=== PATIENT | female | born 1945 | race Caucasian/White ===

== ENCOUNTER 2018-08-01 13:23 | Observation (INO) ==
--- NOTE | 2018-08-01 14:47 | Emergency Department Note ---
Disposition Clinical Impression: Delirium due to general medical condition, Hypokalemia Disposition: Admitted As Inpatient Condition: Undetermined Time of Disposition: 17:00 General Adult HPI - General Chief complaint: ED Altered Mental Status Stated complaint: AMS Time Seen by Provider: 08/01/18 13:39 Source: EMS Limitations: no limitations - History of Present Illness Pain Scale: 5 - Related Data Home Medications Medication Instructions Recorded Confirmed Aspirin [Lo-Dose Aspirin EC] 81 mg PO DAILY 11/03/16 08/01/18 Citalopram [CeleXA] 20 mg PO DAILY 11/03/16 08/01/18 Acetaminophen [Pain Reliever] 500 mg PO Q4H 08/01/18 08/01/18 Atorvastatin Calcium [Lipitor] 20 mg PO HS 08/01/18 08/01/18 Buspirone HCl [Buspar] 7.5 mg PO BID 08/01/18 08/01/18 Ergocalciferol (VITAMIN D2) 50,000 unit PO TOVAR 08/01/18 08/01/18 [Vitamin D2] Ferrous Sulfate [Iron] 325 mg PO TID 08/01/18 08/01/18 Ipratropium/Albuterol Neb [Duoneb] 3 ml IH Q4HR PRN 08/01/18 08/01/18 Lisinopril 2.5 mg PO DAILY 08/01/18 08/01/18 Melatonin 3 mg PO HS 08/01/18 08/01/18 Ondansetron HCl [Zofran] 4 mg PO Q6H PRN 08/01/18 08/01/18 OxyCODONE Immed Rel [Roxicodone 10 10 mg PO Q4H 08/01/18 08/01/18 MG] Pantoprazole Sodium [Protonix] 40 mg PO DAILY 08/01/18 08/01/18 Pregabalin [Lyrica] 100 mg PO BIDWM 08/01/18 08/01/18 Pregabalin [Lyrica] 200 mg PO HS 08/01/18 08/01/18 Sennosides [Senna] 8.6 mg PO DAILY PRN 08/01/18 08/01/18 Sertraline [Zoloft] 25 mg PO DAILY 08/01/18 08/01/18 amLODIPine [Norvasc] 5 mg PO DAILY 08/01/18 08/01/18 hydrOXYzine pamoate [HydrOXYzine 25 mg PO Q8H PRN 08/01/18 08/01/18 Pamoate] Allergies Allergy/AdvReac Type Severity Reaction Status Date / Time ibuprofen [From Motrin] Allergy Hives Verified 10/30/16 16:04 naproxen [From Naprosyn] Allergy Hives Verified 10/30/16 16:04 Amoxicillin AdvReac Vomiting Verified 10/30/16 16:04 Past Medical History - Past Medical History Medical history: Reports: COPD, CVA, hyperlipidemia, hypertension Surgical history: Reports: appendectomy, cancer surgery, carotid endarterectomy, colectomy, hysterectomy, other Psychiatric history: Reports: no psych history VISION CARE ASSOCIATE history: Reports: no VISION CARE ASSOCIATE history - Social History Smoking Status: Current every day smoker Smokeless Tobacco Status: No Alcohol use: Reports: none Drug use: Reports: none Physical Exam - General Limitations: no limitations General appearance: anxious, in distress Course Vital Signs Temperature 98.3 F 08/01/18 13:28 Pulse Rate 78 08/01/18 13:28 Respiratory Rate 20 08/01/18 13:28 Blood Pressure 149/112 08/01/18 13:28 O2 Sat by Pulse Oximetry 100 08/01/18 13:28 Temperature 97.6 F 08/03/18 06:39 Pulse Rate 69 08/03/18 06:39 Respiratory Rate 17 08/03/18 06:39 Blood Pressure 174/93 08/03/18 06:39 O2 Sat by Pulse Oximetry 97 08/03/18 06:39 Oxygen Delivery Oxygen Delivery Room Air Medical Decision Making - Lab Data Result diagrams: 08/01/18 17:42 08/02/18 05:30 Lab Results 08/01/18 08/01/18 08/01/18 Range/Units 17:42 17:42 19:31 WBC 5.7 (4.3-11.1) K/mcL RBC 3.29 L (3.82-4.97) M/mcL Hgb 10.1 L (11.5-15.4) g/dL Hct 32.8 L (35.3-44.9) % MCV 99.7 (83.0-100.0) fL MCH 30.7 (28.0-33.3) pg MCHC 30.8 L (31.6-35.5) g/dL RDW 21.2 H (11.5-14.5) % Plt Count 450 H (140-400) K/mcL MPV 9.2 L (9.4-12.4) fL Immature Gran % 0.4 (0-4) % Seg Neutrophils % 65.1 % Lymphocytes % 24.2 % Monocytes % 8.5 % Eosinophils % 0.9 % Basophils % 0.9 % Neutrophils # 3.7 (1.6-8.9) K/mcL Lymphocytes # 1.4 (0.6-4.6) K/mcL Monocytes # 0.5 (0.0-1.3) K/mcL Eosinophils # 0.1 (0.0-0.6) K/mcL Basophils # 0.1 (0.0-0.2) K/mcL Sodium 142 (136-145) mEq/L Potassium 2.8 L (3.5-5.1) mEq/L Chloride 108 H (98-107) mEq/L Carbon Dioxide 18 L (23-29) mEq/L BUN 12 (8-23) mg/dL Creatinine 0.54 L (0.60-1.20) mg/dL Est GFR ( Amer) > 60 (> 60) Est GFR (Non-Af Amer) > 60 (> 60) BUN/Creatinine Ratio 22 (6-26) Glucose 132 H (70-105) mg/dL Calculated Osmolality 296 (280-300) Calcium 9.6 (8.6-10.3) mg/dL Total Bilirubin 0.3 (0.3-1.0) mg/dL Direct Bilirubin 0.1 (0.0-0.2) mg/dL Indirect Bilirubin 0.2 (0.0-1.2) mg/dL AST 27 (13-39) Units/L ALT 26 (7-52) Units/L Alkaline Phosphatase 127 H (34-104) Units/L Creatine Kinase 113 (30-223) Units/L Troponin I < 0.03 (< 0.04) ng/mL Serum Total Protein 7.5 (6.4-8.9) g/dL Albumin 4.2 (3.5-5.7) g/dL Globulin 3.3 (2.4-3.5) g/dL Albumin/Globulin Ratio 1.3 (1.1-2.2) TSH 2.165 (0.340-5.600) mcIU/mL Urine Color Yellow (Yellow) Urine Clarity Clear (Clear) Urine pH 6.0 (5.0-8.0) pH Units Ur Specific [place] 1.023 (1.010-1.025) Urine Protein Trace (Neg-Trace) mg/dL Urine Glucose (UA) Normal (Normal) mg/dL Urine Ketones Negative (Negative) mg/dL Urine Blood Negative (Negative) Urine Nitrite Negative (Negative) Urine Bilirubin Negative (Negative) Urine Urobilinogen 2.0 H (Normal) mg/dL Ur Leukocyte Esterase Negative (Negative) Urine Microscopic WBC 0-3 (0-3) per hpf Ur Squamous Epith Cells Few (None-Few) per lpf Urine Mucus Few (Few) Ur Culture Indicated? NO (NO) Urine Opiates Screen (Ybxsga=394) ng/mL Ur Barbiturates Screen (Ddkjgm=004) ng/mL Ur Phencyclidine Scrn (Cutoff=25) ng/mL Ur Amphetamines Screen (Ubmaho=4845) ng/mL U Benzodiazepines Scrn (Hymupi=380) ng/mL Urine Cocaine Screen (Cutoff= 300) ng/mL U Marijuana (THC) Screen (Cutoff = 50) ng/mL Ur Drug Screen Interp Ethyl Alcohol < 10 (Less than 10) mg/dL 08/01/18 Range/Units 19:31 WBC (4.3-11.1) K/mcL RBC (3.82-4.97) M/mcL Hgb (11.5-15.4) g/dL Hct (35.3-44.9) % MCV (83.0-100.0) fL MCH (28.0-33.3) pg MCHC (31.6-35.5) g/dL RDW (11.5-14.5) % Plt Count (140-400) K/mcL MPV (9.4-12.4) fL Immature Gran % (0-4) % Seg Neutrophils % % Lymphocytes % % Monocytes % % Eosinophils % % Basophils % % Neutrophils # (1.6-8.9) K/mcL Lymphocytes # (0.6-4.6) K/mcL Monocytes # (0.0-1.3) K/mcL Eosinophils # (0.0-0.6) K/mcL Basophils # (0.0-0.2) K/mcL Sodium (136-145) mEq/L Potassium (3.5-5.1) mEq/L Chloride (98-107) mEq/L Carbon Dioxide (23-29) mEq/L BUN (8-23) mg/dL Creatinine (0.60-1.20) mg/dL Est GFR ( Amer) (> 60) Est GFR (Non-Af Amer) (> 60) BUN/Creatinine Ratio (6-26) Glucose (70-105) mg/dL Calculated Osmolality (280-300) Calcium (8.6-10.3) mg/dL Total Bilirubin (0.3-1.0) mg/dL Direct Bilirubin (0.0-0.2) mg/dL Indirect Bilirubin (0.0-1.2) mg/dL AST (13-39) Units/L ALT (7-52) Units/L Alkaline Phosphatase (34-104) Units/L Creatine Kinase (30-223) Units/L Troponin I (< 0.04) ng/mL Serum Total Protein (6.4-8.9) g/dL Albumin (3.5-5.7) g/dL Globulin (2.4-3.5) g/dL Albumin/Globulin Ratio (1.1-2.2) TSH (0.340-5.600) mcIU/mL Urine Color (Yellow) Urine Clarity (Clear) Urine pH (5.0-8.0) pH Units Ur Specific [place] (1.010-1.025) Urine Protein (Neg-Trace) mg/dL Urine Glucose (UA) (Normal) mg/dL Urine Ketones (Negative) mg/dL Urine Blood (Negative) Urine Nitrite (Negative) Urine Bilirubin (Negative) Urine Urobilinogen (Normal) mg/dL Ur Leukocyte Esterase (Negative) Urine Microscopic WBC (0-3) per hpf Ur Squamous Epith Cells (None-Few) per lpf Urine Mucus (Few) Ur Culture Indicated? (NO) Urine Opiates Screen Positive H (Sccfnq=755) ng/mL Ur Barbiturates Screen Negative (Zlvfay=628) ng/mL Ur Phencyclidine Scrn Negative (Cutoff=25) ng/mL Ur Amphetamines Screen Negative (Wydboa=9865) ng/mL U Benzodiazepines Scrn Negative (Prkngy=130) ng/mL Urine Cocaine Screen Negative (Cutoff= 300) ng/mL U Marijuana (THC) Screen Negative (Cutoff = 50) ng/mL Ur Drug Screen Interp See Below Ethyl Alcohol (Less than 10) mg/dL Attestation Statement - Attestation Attestation: I examined this patient and my medical decision-making was reviewed with the Resident Physician. I agree with the documented findings, disposition and treatment plan as described except to the extent set forth below. Patient presents to the ED with altered mental status. Patient was found at the shelter. They state she walks in the door. They do not she got there. Patient was an inpatient there but the family checked her out AMA recently. Patient is mumbling incoherently. She denies pain when asked if she is having any. On examination she does not appear in any distress. Her lungs are clear. Her abdomen soft. She is noted to have a G-tube in place. Plan. Altered mental status workup. Set now present at bedside. The patient lives with her . She apparently has been noncompliant with her home medications for anxiety. She is persistently wanted to have the G-tube removed which is what she is upset about today. She had him take her to the shelter and drop her off. He is requesting us to call [facility] to see if we can send her today to have her G- tube removed. I told him this was not likely to happen. I told him I am concerned for her safety and sending her home. She will be admitted for safety concerns. She will also be getting her altered mental status workup. We will give her some Ativan at this time to try to calm her down to get her blood drawn. Scans reviewed. No result Ativan. No result Haldol. Patient is still ambulatory and trying to leave. We will give her some Versed and Geodon. Signed out to skiver operator pending labs and admission. Chest X-Ray 08/01/18 13:39 IMPRESSION: No acute findings. No change. D/ / 08/01/2018 14:05:56 Abbe Zhao MD / [facility] Interpreting Provider: Abbe Zhao MD Abdomen/Pelvis CT 08/01/18 13:40 IMPRESSION: Study is motion compromised. Dependent opacities at the lung bases demonstrate interval improvement from the comparison likely atelectasis. Pneumonia not excluded. Interval placement of gastrostomy tube in the left lower quadrant. Tube projects in the stomach in expected position. Expected postsurgical changes noted in the abdominal wall. No definite acute abnormality noted. Cholelithiasis suspected. No acute intra-abdominal or intrapelvic abnormality noted. D/ / 08/01/2018 15:12:15 Cole Rodriguez MD / [email or web address] Interpreting Provider: Cole Rodriguez MD Head CT 08/01/18 13:40 IMPRESSION: No acute intracranial abnormality. D/ / Paolo Sommers MD / Paolo Sommers MD Interpreting Provider: Paolo Sommers MD
[2018-08-01] MEDS ORDERED: *HR* LORazepam 2 MG/ML VIAL IM ONE (15:24)
[2018-08-01] MEDS ORDERED: Haloperidol Lactate 5 MG/ML VIAL IM ONE ×2 (16:10→16:33)
[2018-08-01] MEDS ORDERED: Ziprasidone injection 20 MG/ML VIAL IM ONE (17:01)
[2018-08-01] MEDS ORDERED: *HR* Water for inj. (sterile) Vial IM ONE (17:01)
--- NOTE | 2018-08-01 17:15 | Emergency Department Note ---
Disposition Clinical Impression: Delirium due to general medical condition Disposition: Admitted As Inpatient Referrals: NONE,PCP [Primary Care Provider] - Forms: ED Satisfaction Letter Time of Disposition: 17:14 General Adult HPI - General Chief complaint: ED Altered Mental Status Stated complaint: AMS Time Seen by Provider: 08/01/18 13:39 Source: EMS Mode of arrival: EMS Limitations: altered mental status Nursing Notes Reviewed: Yes Vital Signs Reviewed: Yes - History of Present Illness HPI Narrative: Patient signed out by the departing ED attending and resident team of Dr. rivera and Dr. Morris. Please see copy of their notes for details of the history and physical examination evaluation management to the point of sign out at 1700. Patient who has altered mental status is a face was signed out AGAINST MEDICAL ADVICE from her [facility] in the recent past was at home not doing well family just dropped her off at the [facility] which they called 911 and she is here she is unable to make her own decisions family wants her placed she will require reevaluation here and admission for placement back in the senior care facility. Patient is little agitated currently getting medication she will then get an IV blood work and urinalysis. Patient had an abdominal pelvic CT chest x-ray and head CT otherwise were read as negative. Disposition pending. Pain Scale: 5 - Related Data Home Medications Medication Instructions Recorded Confirmed Aspirin [Lo-Dose Aspirin EC] 81 mg PO DAILY 11/03/16 11/03/16 Buspirone HCl [Buspar] 10 mg PO BID PRN 11/03/16 11/03/16 Citalopram [CeleXA] 20 mg PO DAILY 11/03/16 11/03/16 Allergies Allergy/AdvReac Type Severity Reaction Status Date / Time ibuprofen [From Motrin] Allergy Hives Verified 10/30/16 16:04 naproxen [From Naprosyn] Allergy Hives Verified 10/30/16 16:04 Amoxicillin AdvReac Vomiting Verified 10/30/16 16:04 Past Medical History - Past Medical History Medical history: Reports: COPD, CVA, hyperlipidemia, hypertension Surgical history: Reports: appendectomy, cancer surgery, carotid endarterectomy, colectomy, hysterectomy, other Psychiatric history: Reports: no psych history SHINGLER history: Reports: no SHINGLER history - Social History Smoking Status: Current every day smoker Smokeless Tobacco Status: No Alcohol use: Reports: none Drug use: Reports: none Physical Exam - General Limitations: no limitations General appearance: anxious, in distress Course Vital Signs Temperature 98.3 F 08/01/18 13:28 Pulse Rate 78 08/01/18 13:28 Respiratory Rate 20 08/01/18 13:28 Blood Pressure 149/112 08/01/18 13:28 O2 Sat by Pulse Oximetry 100 08/01/18 13:28 Temperature 98.3 F 08/01/18 13:28 Pulse Rate 78 08/01/18 13:28 Respiratory Rate 24 08/01/18 15:37 Blood Pressure 166/87 08/01/18 15:37 O2 Sat by Pulse Oximetry 95 08/01/18 15:37 Oxygen Delivery Oxygen Delivery Room Air
--- NOTE | 2018-08-01 17:39 | Emergency Department Note ---
Disposition Clinical Impression: Delirium due to general medical condition Disposition: Admitted As Inpatient Referrals: NONE,PCP [Primary Care Provider] - Forms: ED Satisfaction Letter Time of Disposition: 17:42 General Adult HPI - General Chief complaint: ED Altered Mental Status Stated complaint: AMS Time Seen by Provider: 08/01/18 13:39 Source: EMS Mode of arrival: EMS Limitations: altered mental status Nursing Notes Reviewed: Yes Vital Signs Reviewed: Yes - History of Present Illness HPI Narrative: Patient is a 72-year-old female with past medical history of CVA leaving her with chronic aphasia, dementia, as well as G-tube presents to the emergency department brought to the emergency department for admission to a snf. Patient family states that she was signed out AGAINST MEDICAL ADVICE by her and which eventually her brought her back to the snf and they are unable to accept her without her coming to the hospital first. Patient herself cannot answer any of my questions repetitively says the same ordered which I cannot understand. Family is at bedside and they state that this is her baseline. Pain Scale: 5 - Related Data Home Medications Medication Instructions Recorded Confirmed Aspirin [Lo-Dose Aspirin EC] 81 mg PO DAILY 11/03/16 11/03/16 Buspirone HCl [Buspar] 10 mg PO BID PRN 11/03/16 11/03/16 Citalopram [CeleXA] 20 mg PO DAILY 11/03/16 11/03/16 Allergies Allergy/AdvReac Type Severity Reaction Status Date / Time ibuprofen [From Motrin] Allergy Hives Verified 10/30/16 16:04 naproxen [From Naprosyn] Allergy Hives Verified 10/30/16 16:04 Amoxicillin AdvReac Vomiting Verified 10/30/16 16:04 Limitations: ROS unobtainable due to patients medical condition Past Medical History - Past Medical History Medical history: Reports: COPD, CVA, hyperlipidemia, hypertension Surgical history: Reports: appendectomy, cancer surgery, carotid endarterectomy, colectomy, hysterectomy, other Psychiatric history: Reports: no psych history LICENSED WEIGHER history: Reports: no LICENSED WEIGHER history - Social History Smoking Status: Current every day smoker Smokeless Tobacco Status: No Alcohol use: Reports: none Drug use: Reports: none Physical Exam - General Limitations: altered mental status General appearance: alert, anxious, in distress - Head Head exam: atraumatic, normocephalic, normal inspection - Eye Eye exam: Present: normal appearance, PERRL, EOMI - ENT ENT exam: normal exam, normal oropharynx, mucous membranes moist - Neck Neck exam: Present: normal inspection, full ROM, trachea midline - Chest Chest inspection: Present: normal inspection, symmetric chest wall rise - Respiratory Respiratory exam: Present: normal lung sounds bilaterally. Absent: respiratory distress - Cardiovascular Cardiovascular exam: Present: regular rate, normal rhythm, normal heart sounds, +S1, +S2 - Abdominal Exam Abdominal exam: Present: soft, Non-Tender, normal bowel sounds. Absent: tenderness, distention, guarding, rebound, rigidity - Extremities Exam Extremities exam: Present: normal inspection, full ROM. Absent: tenderness, pedal edema - Back Exam Back exam: Present: normal inspection, full ROM. Absent: tenderness - Neurological Exam Neurological exam: Present: alert - Psychiatric Psychiatric exam: Present: agitated - Skin Skin exam: Present: warm, dry, intact, normal color Course Course Narrative: Patient presents for evaluation for snf placement with no new complaints from her baseline. We attempted to have her undergo a altered mental status workup of the patient has been noncooperative secondary to her dementia. She will be signed out to the night team. We trialed Ativan as well as a dose of Haldol for agitation she continues to be agitated. She will receive a dose of Geodon IM and then reassessed for IV and labs. She was signed out to the night team, Dr. Smalls and Dr. Jalloh with blood work and urine pending. Vital Signs Temperature 98.3 F 08/01/18 13:28 Pulse Rate 78 08/01/18 13:28 Respiratory Rate 20 08/01/18 13:28 Blood Pressure 149/112 08/01/18 13:28 O2 Sat by Pulse Oximetry 100 08/01/18 13:28 Temperature 98.3 F 08/01/18 13:28 Pulse Rate 78 08/01/18 13:28 Respiratory Rate 24 08/01/18 15:37 Blood Pressure 166/87 08/01/18 15:37 O2 Sat by Pulse Oximetry 95 08/01/18 15:37 Oxygen Delivery Oxygen Delivery Room Air Medical Decision Making - Medical Records Medical records reviewed: Yes I reviewed the patient's medical records. - Lab Data Lab results reviewed: Yes I reviewed the patient's lab results. - Radiology Data Radiology results reviewed: Yes I reviewed the patient's radiology results. Chest X-Ray 08/01/18 13:39 IMPRESSION: No acute findings. No change. D/ / 08/01/2018 14:05:56 Abbe Zhao MD / [facility] Interpreting Provider: Abbe Zhao MD Abdomen/Pelvis CT 08/01/18 13:40 IMPRESSION: Study is motion compromised. Dependent opacities at the lung bases demonstrate interval improvement from the comparison likely atelectasis. Pneumonia not excluded. Interval placement of gastrostomy tube in the left lower quadrant. Tube projects in the stomach in expected position. Expected postsurgical changes noted in the abdominal wall. No definite acute abnormality noted. Cholelithiasis suspected. No acute intra-abdominal or intrapelvic abnormality noted. D/ / 08/01/2018 15:12:15 Cole Rodriguez MD / [facility] Interpreting Provider: Cole Rodriguez MD Head CT 08/01/18 13:40 IMPRESSION: No acute intracranial abnormality. D/ / Paolo Sommers MD / Paolo Sommers MD Interpreting Provider: Paolo Sommers MD
--- NOTE | 2018-08-01 17:39 | Emergency Department Note ---
Disposition Clinical Impression: Delirium due to general medical condition, Hypokalemia Disposition: Admitted As Inpatient Condition: Undetermined Referrals: NONE,PCP [Primary Care Provider] - Forms: ED Satisfaction Letter Time of Disposition: 20:15 General Adult HPI - General Chief complaint: ED Altered Mental Status Stated complaint: AMS Time Seen by Provider: 08/01/18 13:39 Source: EMS Mode of arrival: EMS Limitations: altered mental status Nursing Notes Reviewed: Yes Vital Signs Reviewed: Yes - History of Present Illness HPI Narrative: Patient care signed out by the day team, Dr. Zamarripa in Dr. Chacon. Briefly this is a 72-year-old female with history of chronic achalasia was apparently signed out AGAINST MEDICAL ADVICE from nursing facility who apparently is currently living at home at this time and they are unable to care for. Apparently they attempted to drop the patient back off at the nursing facility was unable to do so. EMS was called upon arrival to the custodial and brought the patient in for evaluation. Pain Scale: 5 - Related Data Home Medications Medication Instructions Recorded Confirmed Aspirin [Lo-Dose Aspirin EC] 81 mg PO DAILY 11/03/16 11/03/16 Buspirone HCl [Buspar] 10 mg PO BID PRN 11/03/16 11/03/16 Citalopram [CeleXA] 20 mg PO DAILY 11/03/16 11/03/16 Allergies Allergy/AdvReac Type Severity Reaction Status Date / Time ibuprofen [From Motrin] Allergy Hives Verified 10/30/16 16:04 naproxen [From Naprosyn] Allergy Hives Verified 10/30/16 16:04 Amoxicillin AdvReac Vomiting Verified 10/30/16 16:04 Limitations: ROS unobtainable due to patients medical condition Past Medical History - Past Medical History Source: old records reviewed, obtained from family Medical history: Reports: COPD, CVA, hyperlipidemia, hypertension Surgical history: Reports: appendectomy, cancer surgery, carotid endarterectomy, colectomy, hysterectomy, other Psychiatric history: Reports: no psych history ENGINE INSPECTOR history: Reports: no ENGINE INSPECTOR history - Social History Smoking Status: Current every day smoker Smokeless Tobacco Status: No Alcohol use: Reports: none Drug use: Reports: none Physical Exam - General Limitations: altered mental status General appearance: anxious, in distress - Head Head exam: atraumatic, normocephalic, normal inspection - Eye Eye exam: Present: normal appearance, PERRL, EOMI - ENT ENT exam: normal exam, normal oropharynx, mucous membranes moist - Neck Neck exam: Present: normal inspection, full ROM, trachea midline - Chest Chest inspection: Present: normal inspection, symmetric chest wall rise - Respiratory Respiratory exam: Present: normal lung sounds bilaterally - Cardiovascular Cardiovascular exam: Present: regular rate, normal rhythm, normal heart sounds - Abdominal Exam Abdominal exam: Present: soft, Non-Tender. Absent: tenderness, distention, guarding, rebound, rigidity - Extremities Exam Extremities exam: Present: normal inspection, full ROM, normal capillary refill. Absent: tenderness, pedal edema - Neurological Exam Neurological exam: Present: alert - Expanded Neurological Exam Speech: Present: expressive aphasia Cranial nerves: EOM function (II, III, IV, ): Normal, facial palsy (VII): Normal Motor strength - LUE: 4/5 Motor strength - RUE: 4/5 Motor strength - LLE: 4/5 Motor strength - RLE: 4/5 Coma Scale Eye Opening: Spontaneous Coma Scale Motor Response: Obeys Commands Coma Scale Verbal Response: Incomprehensible Coma Scale Total: 12 - Skin Skin exam: Present: warm, dry, intact, normal color Course Vital Signs Temperature 98.3 F 08/01/18 13:28 Pulse Rate 78 08/01/18 13:28 Respiratory Rate 20 08/01/18 13:28 Blood Pressure 149/112 08/01/18 13:28 O2 Sat by Pulse Oximetry 100 08/01/18 13:28 Temperature 98.3 F 08/01/18 13:28 Pulse Rate 61 08/01/18 19:36 Respiratory Rate 18 08/01/18 19:36 Blood Pressure 118/55 08/01/18 19:36 O2 Sat by Pulse Oximetry 98 08/01/18 19:36 Oxygen Delivery Oxygen Delivery Room Air Medical Decision Making - MDM Narrative Medical decision making narrative: Patient's workup reveals hypokalemia. No other acute abnormality noted. Patient has baseline anemia. Given the patient's inability to care for herself at home combined with alteration in mentation from baseline according to family and hypokalemia, we will admit the patient to hospital this time for further workup and care. No further questions or concerns noted. - Lab Data Lab results reviewed: Yes I reviewed the patient's lab results. Result diagrams: 08/01/18 17:42 08/01/18 17:42 Lab Results 08/01/18 08/01/18 08/01/18 Range/Units 17:42 17:42 19:31 WBC 5.7 (4.3-11.1) K/mcL RBC 3.29 L (3.82-4.97) M/mcL Hgb 10.1 L (11.5-15.4) g/dL Hct 32.8 L (35.3-44.9) % MCV 99.7 (83.0-100.0) fL MCH 30.7 (28.0-33.3) pg MCHC 30.8 L (31.6-35.5) g/dL RDW 21.2 H (11.5-14.5) % Plt Count 450 H (140-400) K/mcL MPV 9.2 L (9.4-12.4) fL Immature Gran % 0.4 (0-4) % Seg Neutrophils % 65.1 % Lymphocytes % 24.2 % Monocytes % 8.5 % Eosinophils % 0.9 % Basophils % 0.9 % Neutrophils # 3.7 (1.6-8.9) K/mcL Lymphocytes # 1.4 (0.6-4.6) K/mcL Monocytes # 0.5 (0.0-1.3) K/mcL Eosinophils # 0.1 (0.0-0.6) K/mcL Basophils # 0.1 (0.0-0.2) K/mcL Sodium 142 (136-145) mEq/L Potassium 2.8 L (3.5-5.1) mEq/L Chloride 108 H (98-107) mEq/L Carbon Dioxide 18 L (23-29) mEq/L BUN 12 (8-23) mg/dL Creatinine 0.54 L (0.60-1.20) mg/dL Est GFR ( Amer) > 60 (> 60) Est GFR (Non-Af Amer) > 60 (> 60) BUN/Creatinine Ratio 22 (6-26) Glucose 132 H (70-105) mg/dL Calculated Osmolality 296 (280-300) Calcium 9.6 (8.6-10.3) mg/dL Total Bilirubin 0.3 (0.3-1.0) mg/dL Direct Bilirubin 0.1 (0.0-0.2) mg/dL Indirect Bilirubin 0.2 (0.0-1.2) mg/dL AST 27 (13-39) Units/L ALT 26 (7-52) Units/L Alkaline Phosphatase 127 H (34-104) Units/L Creatine Kinase 113 (30-223) Units/L Troponin I < 0.03 (< 0.04) ng/mL Serum Total Protein 7.5 (6.4-8.9) g/dL Albumin 4.2 (3.5-5.7) g/dL Globulin 3.3 (2.4-3.5) g/dL Albumin/Globulin Ratio 1.3 (1.1-2.2) TSH 2.165 (0.340-5.600) mcIU/mL Urine Color Yellow (Yellow) Urine Clarity Clear (Clear) Urine pH 6.0 (5.0-8.0) pH Units Ur Specific [place] 1.023 (1.010-1.025) Urine Protein Trace (Neg-Trace) mg/dL Urine Glucose (UA) Normal (Normal) mg/dL Urine Ketones Negative (Negative) mg/dL Urine Blood Negative (Negative) Urine Nitrite Negative (Negative) Urine Bilirubin Negative (Negative) Urine Urobilinogen 2.0 H (Normal) mg/dL Ur Leukocyte Esterase Negative (Negative) Urine Opiates Screen (Rckddj=936) ng/mL Ur Barbiturates Screen (Xliuzp=805) ng/mL Ur Phencyclidine Scrn (Cutoff=25) ng/mL Ur Amphetamines Screen (Uvsbyg=6798) ng/mL U Benzodiazepines Scrn (Anscmw=513) ng/mL Urine Cocaine Screen (Cutoff= 300) ng/mL U Marijuana (THC) Screen (Cutoff = 50) ng/mL Ur Drug Screen Interp Ethyl Alcohol < 10 (Less than 10) mg/dL 08/01/18 Range/Units 19:31 WBC (4.3-11.1) K/mcL RBC (3.82-4.97) M/mcL Hgb (11.5-15.4) g/dL Hct (35.3-44.9) % MCV (83.0-100.0) fL MCH (28.0-33.3) pg MCHC (31.6-35.5) g/dL RDW (11.5-14.5) % Plt Count (140-400) K/mcL MPV (9.4-12.4) fL Immature Gran % (0-4) % Seg Neutrophils % % Lymphocytes % % Monocytes % % Eosinophils % % Basophils % % Neutrophils # (1.6-8.9) K/mcL Lymphocytes # (0.6-4.6) K/mcL Monocytes # (0.0-1.3) K/mcL Eosinophils # (0.0-0.6) K/mcL Basophils # (0.0-0.2) K/mcL Sodium (136-145) mEq/L Potassium (3.5-5.1) mEq/L Chloride (98-107) mEq/L Carbon Dioxide (23-29) mEq/L BUN (8-23) mg/dL Creatinine (0.60-1.20) mg/dL Est GFR ( Amer) (> 60) Est GFR (Non-Af Amer) (> 60) BUN/Creatinine Ratio (6-26) Glucose (70-105) mg/dL Calculated Osmolality (280-300) Calcium (8.6-10.3) mg/dL Total Bilirubin (0.3-1.0) mg/dL Direct Bilirubin (0.0-0.2) mg/dL Indirect Bilirubin (0.0-1.2) mg/dL AST (13-39) Units/L ALT (7-52) Units/L Alkaline Phosphatase (34-104) Units/L Creatine Kinase (30-223) Units/L Troponin I (< 0.04) ng/mL Serum Total Protein (6.4-8.9) g/dL Albumin (3.5-5.7) g/dL Globulin (2.4-3.5) g/dL Albumin/Globulin Ratio (1.1-2.2) TSH (0.340-5.600) mcIU/mL Urine Color (Yellow) Urine Clarity (Clear) Urine pH (5.0-8.0) pH Units Ur Specific [place] (1.010-1.025) Urine Protein (Neg-Trace) mg/dL Urine Glucose (UA) (Normal) mg/dL Urine Ketones (Negative) mg/dL Urine Blood (Negative) Urine Nitrite (Negative) Urine Bilirubin (Negative) Urine Urobilinogen (Normal) mg/dL Ur Leukocyte Esterase (Negative) Urine Opiates Screen Positive H (Vidvfe=246) ng/mL Ur Barbiturates Screen Negative (Hhfwby=450) ng/mL Ur Phencyclidine Scrn Negative (Cutoff=25) ng/mL Ur Amphetamines Screen Negative (Ywpjmb=1902) ng/mL U Benzodiazepines Scrn Negative (Qotyht=203) ng/mL Urine Cocaine Screen Negative (Cutoff= 300) ng/mL U Marijuana (THC) Screen Negative (Cutoff = 50) ng/mL Ur Drug Screen Interp See Below Ethyl Alcohol (Less than 10) mg/dL - Radiology Data Radiology results reviewed: Yes I reviewed the patient's radiology results. Chest X-Ray 08/01/18 13:39 IMPRESSION: No acute findings. No change. D/ / 08/01/2018 14:05:56 Abbe Zhao MD / [facility] Interpreting Provider: Abbe Zhao MD Abdomen/Pelvis CT 08/01/18 13:40 IMPRESSION: Study is motion compromised. Dependent opacities at the lung bases demonstrate interval improvement from the comparison likely atelectasis. Pneumonia not excluded. Interval placement of gastrostomy tube in the left lower quadrant. Tube projects in the stomach in expected position. Expected postsurgical changes noted in the abdominal wall. No definite acute abnormality noted. Cholelithiasis suspected. No acute intra-abdominal or intrapelvic abnormality noted. D/ / 08/01/2018 15:12:15 Cole Rodriguez MD / [facility] Interpreting Provider: Cole Rodriguez MD Head CT 08/01/18 13:40 IMPRESSION: No acute intracranial abnormality. D/ / Paolo Sommers MD / Paolo Sommers MD Interpreting Provider: Paolo Sommers MD - EKG Data EKG #1 EKG attestation: Yes I reviewed and interpreted this EKG. EKG results narrative: Heart rate 80 beats for minute. Normal sinus rhythm. No ST elevation or ST depression noted. Large amount of artifact so difficult to completely assess.
[2018-08-01 18:00] LABS: Basophils # 0.1 K/mcL (0.0-0.2); Basophils % 0.9 %; Eosinophils # 0.1 K/mcL (0.0-0.6); Eosinophils % 0.9 %; Hematocrit 32.8 % (35.3-44.9); Hemoglobin 10.1 g/dL (11.5-15.4); Immature Granulocytes % 0.4 % (0-4); Lymphocytes # 1.4 K/mcL (0.6-4.6); Lymphocytes % 24.2 %; Mean Corpuscular HGB Conc 30.8 g/dL (31.6-35.5); Mean Corpuscular Hemoglobin 30.7 pg (28.0-33.3); Mean Corpuscular Volume 99.7 fL (83.0-100.0); Mean Platelet Volume 9.2 fL (9.4-12.4); Monocytes # 0.5 K/mcL (0.0-1.3); Monocytes % 8.5 %; Neutrophils # 3.7 K/mcL (1.6-8.9); Platelet Count 450 K/mcL (140-400); Red Blood Count 3.29 M/mcL (3.82-4.97); Red Cell Distribution Width 21.2 % (11.5-14.5); Segmented Neutrophils % 65.1 %
[2018-08-01 18:47] LABS: Alanine Aminotransferase 26 Units/L (7-52); Albumin 4.2 g/dL (3.5-5.7); Albumin/Globulin Ratio 1.3 (1.1-2.2); Alkaline Phosphatase 127 Units/L (34-104); Aspartate Amino Transferase 27 Units/L (13-39); BUN/Creatinine Ratio 22 (6-26); Bilirubin,Direct 0.1 mg/dL (0.0-0.2); Bilirubin,Indirect 0.2 mg/dL (0.0-1.2); Bilirubin,Total 0.3 mg/dL (0.3-1.0); Blood Urea Nitrogen 12 mg/dL (8-23); Calcium 9.6 mg/dL (8.6-10.3); Carbon Dioxide 18 mEq/L (23-29); Chloride 108 mEq/L (98-107); Creatine Kinase 113 Units/L (30-223); Globulin 3.3 g/dL (2.4-3.5); Glucose 132 mg/dL (70-105); Osmolality,Calculated 296 (280-300); Potassium 2.8 mEq/L (3.5-5.1); Sodium 142 mEq/L (136-145); Thyroid Stimulating Hormone 2.165 mcIU/mL (0.340-5.600); Total Protein 7.5 g/dL (6.4-8.9); Troponin I < 0.03 ng/mL (< 0.04); eGFR For Non-African Americans > 60 (> 60)
[2018-08-01] MEDS ORDERED: Potassium Chloride Elixir 20 MEQ/15 ML UDC PO ONE (19:05)
[2018-08-01 19:22] LABS: Ethanol < 10 mg/dL (Less than 10)
[2018-08-01 19:49] LABS: Bilirubin,Urine Negative (Negative); Blood,Urine Negative (Negative); Clarity,Urine Clear (Clear); Color,Urine Yellow (Yellow); Glucose,Urine (UA) Normal (Normal); Ketones,Urine Negative (Negative); Leukocyte Esterase,Urine Negative (Negative); Nitrite,Urine Negative (Negative); Protein,Urine Trace mg/dL (Neg-Trace); Specific Gravity,Urine 1.023 (1.010-1.025)
[2018-08-01 20:00] LABS: Amphetamine Screen,Urine Negative ng/mL (Cutoff=1000); Barbiturate Screen,Urine Negative ng/mL (Cutoff=200); Benzodiazepines Screen,Urine Negative ng/mL (Cutoff=200); Cannabinoid Screen,Urine Negative ng/mL (Cutoff = 50); Cocaine Screen,Urine Negative ng/mL (Cutoff= 300); Opiate Screen,Urine Positive ng/mL (Cutoff=300); Phencyclidine Screen,Urine Negative ng/mL (Cutoff=25)
[2018-08-01 20:15] LABS: Mucus,Urine Few (Few); Squamous Epithelial Cell,Urine Few per lpf (None-Few); WBC,Urine 0-3 per hpf (0-3)
[2018-08-01] MEDS ORDERED: Naloxone 0.4 MG/ML INJ IVP PRN (20:52)
--- NOTE | 2018-08-01 21:46 | Internal Med History&Physical ---
<Farheen Smalls E - Last Filed: 08/01/18 21:38> Date of Encounter: 08/01/18 Time of Encounter: 09:00 Internal Medicine - H&P: HPI Chief complaint: Altered mental status Admitted From: Home Plans for Post Hospital Care: Transfer Residential Facility History of present illness: Ms. 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 until July 27. It is reported that earlier today was at social work in the ER received a call from [facility] the patient showed up in the parking lot the squad was called. Her had signed her out AMA on July 27 due to insurance not paying for staining. It was reported that she has not been compliant with her home medications for anxiety over the last 5 days after leaving [facility]. Patient was agitated in the ED and is assumed to have altered mental status although the family has differing reports on whether this is altered mental status or the patient's normal. Patient was tried on Ativan, Haldol with no results. Patient was trying to leave the ED and was very agitated. She was given Geodon. Patient's labs show baseline anemia improved since last admission, potassium level 2.8. Toxicology screen showed positive for opiates. All other labs unremarkable Chest x-ray showed no acute findings CT abdomen and pelvis showed: Dependent opacities at the lung bases demonstrate interval improvement from the comparison likely atelectasis. Interval placement of gastrostomy tube in the left lower quadrant, tip projects in the stomach in expected position, expected postsurgical changes noted in the abdominal wall, no definite acute and normality noted. Cholelithiasis is suspected, no acute intra-abdominal or intrapelvic abnormality noted. CT head/brain without contrast showed no acute intracranial abnormality Past Med Surg Social Fam HX - Past Medical History Medical history: COPD, CVA, hyperlipidemia, hypertension Additional medical history: TIA, neck injury, Anxiety, Anemia, Peptic Ulcer, Left index finger digit ovulsion, carotid stenosis. bilateral weakness and memory loss due to CVA Psychiatric history: no psych history - Past Surgical History Surgical History: appendectomy, cancer surgery, carotid endarterectomy, colectomy, hysterectomy, other Additional surgical history: back surgery. Cervical cancer-lymph nodes removed. Left foot surgery. neck surgery. PEG tube - Social History Smoking Status: Current every day smoker Smokeless Tobacco Status: No Alcohol use: none Drug use: none Internal Medicine - H&P: Meds Aspirin [Lo-Dose Aspirin EC] 81 mg PO DAILY 11/03/16 [History] Citalopram [CeleXA] 20 mg PO DAILY 11/03/16 [History] Acetaminophen [Pain Reliever] 500 mg PO Q4H 08/01/18 [History] Atorvastatin Calcium [Lipitor] 20 mg PO HS 08/01/18 [History] Buspirone HCl [Buspar] 7.5 mg PO BID 08/01/18 [History] Ergocalciferol (VITAMIN D2) [Vitamin D2] 50,000 unit PO TOVAR 08/01/18 [History] Ferrous Sulfate [Iron] 325 mg PO TID 08/01/18 [History] Ipratropium/Albuterol Neb [Duoneb] 3 ml IH Q4HR PRN 08/01/18 [History] Lisinopril 2.5 mg PO DAILY 08/01/18 [History] Melatonin 3 mg PO HS 08/01/18 [History] Ondansetron HCl [Zofran] 4 mg PO Q6H PRN 08/01/18 [History] OxyCODONE Immed Rel [Roxicodone 10 MG] 10 mg PO Q4H 08/01/18 [History] Pantoprazole Sodium [Protonix] 40 mg PO DAILY 08/01/18 [History] Pregabalin [Lyrica] 100 mg PO BIDWM 08/01/18 [History] Pregabalin [Lyrica] 200 mg PO HS 08/01/18 [History] Sennosides [Senna] 8.6 mg PO DAILY PRN 08/01/18 [History] Sertraline [Zoloft] 25 mg PO DAILY 08/01/18 [History] amLODIPine [Norvasc] 5 mg PO DAILY 08/01/18 [History] hydrOXYzine pamoate [HydrOXYzine Pamoate] 25 mg PO Q8H PRN 08/01/18 [History] Allergy/AdvReac Type Severity Reaction Status Date / Time ibuprofen [From Motrin] Allergy Hives Verified 10/30/16 16:04 naproxen [From Naprosyn] Allergy Hives Verified 10/30/16 16:04 Amoxicillin AdvReac Vomiting Verified 10/30/16 16:04 ROS unobtainable: due to mental status (Patient asleep and not easily awoken at bedside, patient would awake to touch but would fall immediately back asleep.) All Systems PM: A 10-system review of systems was performed and is negative for pertinent findings except as documented above in the HPI. - Constitutional Vitals: Temp Pulse Resp BP Pulse Ox 98.3 F 61 18 118/55 98 08/01/18 13:28 08/01/18 19:36 08/01/18 19:36 08/01/18 19:36 08/01/18 19:36 Exam: General: Patient was asleep, aroused by touch but had fallen back asleep. Head: normocephalic, atraumatic Eyes: SWATI, no icterus, no discharge Neck: Trachea midline, no lymphadenopathy Cardio: RRR, no mumurs, rubs, or gallops Respiratory: CTAB, no wheezing, rhonchi, rales Chest: Normal chest wall rise, atraumatic Abd: normal bowel sounds, no gaurding or rigidity, site of G-tube no erythema, warmth, discharge Extremties: no pedal edema, pulses equal bilaterally, warm Skin: warm, dry, intact Internal Med - H&P Results - Labs CBC & Chem 7: 08/01/18 17:42 08/01/18 17:42 Labs: Short CBC 08/01/18 Range/Units 17:42 WBC 5.7 (4.3-11.1) K/mcL Hgb 10.1 L (11.5-15.4) g/dL Hct 32.8 L (35.3-44.9) % Plt Count 450 H (140-400) K/mcL Neutrophils # 3.7 (1.6-8.9) K/mcL BMP 08/01/18 17:42 Sodium 142 Potassium 2.8 L Chloride 108 H Carbon Dioxide 18 L BUN 12 Creatinine 0.54 L Glucose 132 H Calcium 9.6 Cardiac Enzymes 08/01/18 Range/Units 17:42 Troponin I < 0.03 (< 0.04) ng/mL Liver Function 08/01/18 Range/Units 17:42 Total Bilirubin 0.3 (0.3-1.0) mg/dL Direct Bilirubin 0.1 (0.0-0.2) mg/dL AST 27 (13-39) Units/L ALT 26 (7-52) Units/L Alkaline Phosphatase 127 H (34-104) Units/L Albumin 4.2 (3.5-5.7) g/dL Urine 08/01/18 Range/Units 19:31 Urine Color Yellow (Yellow) Urine Clarity Clear (Clear) Urine pH 6.0 (5.0-8.0) pH Units Ur Specific [place] 1.023 (1.010-1.025) Urine Protein Trace (Neg-Trace) mg/dL Urine Glucose (UA) Normal (Normal) mg/dL - Impressions ITS Impressions Chest X-Ray 08/01/18 13:39 IMPRESSION: No acute findings. No change. D/ / 08/01/2018 14:05:56 Abbe Zhao MD / [facility] Interpreting Provider: Abbe Zhao MD Abdomen/Pelvis CT 08/01/18 13:40 IMPRESSION: Study is motion compromised. Dependent opacities at the lung bases demonstrate interval improvement from the comparison likely atelectasis. Pneumonia not excluded. Interval placement of gastrostomy tube in the left lower quadrant. Tube projects in the stomach in expected position. Expected postsurgical changes noted in the abdominal wall. No definite acute abnormality noted. Cholelithiasis suspected. No acute intra-abdominal or intrapelvic abnormality noted. D/ / 08/01/2018 15:12:15 [facility] Interpreting Provider: Cole Rodriguez MD Head CT 08/01/18 13:40 IMPRESSION: No acute intracranial abnormality. D/ / Paolo Sommers MD / Paolo Sommers MD Interpreting Provider: Paolo Sommers MD - Assessment and Plan (1) Altered mental status Current Visit: Yes Status: Acute Assessment and plan: Patient presented to the ED with agitation and confusion in unknown at this time Differing stories from family members as to whether this is altered mental status of the patient's baseline Patient has reportedly not been taking her medications at home for the last 5 days including Celexa, BuSpar, hydroxyzine, Lyrica, Zoloft CT head showed no acute findings No sources of infection noted Work unremarkable besides hypokalemia Patient was given Haldol, Ativan, Geodon in ED We will continue to monitor patient's status, due to educations unable to reassess at this time We will reassess as these medications wear off Qualifiers: Altered mental status type: disorientation Qualified Code(s): R41.0 - Disorientation, unspecified (2) Frail elderly Current Visit: Yes Status: Acute Assessment and plan: Patient previously resided at [facility] Patient's signed her out AMA 5 days ago after insurance stopped paying for her stay Patient's dropped her back off at the [facility] today Unable to be cared for at home PT/OT consulted Consider nutrition consult CODE STATUS is currently full code but needs to be reviewed with the family (3) Hypokalemia Current Visit: Yes Status: Acute Assessment and plan: Patient's initial potassium level II.8 Patient was given 40 units potassium in the ED 44 units have been ordered We will continue to monitor and replace as necessary (4) Chronic disease anemia Current Visit: No Status: Chronic Assessment and plan: She currently on ferrous sulfate at home We will continue home medications (5) Mixed hyperlipidemia Current Visit: No Status: Chronic Assessment and plan: Patient currently on a statin at home We will continue home medication (6) Essential hypertension Current Visit: No Status: Chronic Assessment and plan: Patient currently well controlled without medication We will hold medications for now At home medications of amlodipine and lisinopril as needed for blood pressure management (7) DVT prophylaxis Current Visit: Yes Status: Acute Assessment and plan: Subcutaneous heparin - Time Spent With Patient Total time spent is greater than 50% in coordination of care (as documented) at patient's floor/unit and/or counseling patient: <Sudheer Weber - Last Filed: 08/02/18 03:58> Date of Encounter: 08/01/18 Internal Medicine - H&P: HPI History of present illness: Ms. Barraza is a 72 year old female All Systems PM: A 10-system review of systems was performed and is negative for pertinent findings except as documented above in the HPI. - Constitutional Vitals: Temp Pulse Resp BP Pulse Ox 98.0 F 80 18 147/71 96 08/02/18 03:23 08/02/18 03:23 08/02/18 03:23 08/02/18 03:23 08/02/18 03:23 Internal Med - H&P Results - Labs CBC & Chem 7: 08/01/18 17:42 08/01/18 17:42 Labs: Short CBC 08/01/18 Range/Units 17:42 WBC 5.7 (4.3-11.1) K/mcL Hgb 10.1 L (11.5-15.4) g/dL Hct 32.8 L (35.3-44.9) % Plt Count 450 H (140-400) K/mcL Neutrophils # 3.7 (1.6-8.9) K/mcL BMP 08/01/18 17:42 Sodium 142 Potassium 2.8 L Chloride 108 H Carbon Dioxide 18 L BUN 12 Creatinine 0.54 L Glucose 132 H Calcium 9.6 Cardiac Enzymes 08/01/18 Range/Units 17:42 Troponin I < 0.03 (< 0.04) ng/mL Liver Function 08/01/18 Range/Units 17:42 Total Bilirubin 0.3 (0.3-1.0) mg/dL Direct Bilirubin 0.1 (0.0-0.2) mg/dL AST 27 (13-39) Units/L ALT 26 (7-52) Units/L Alkaline Phosphatase 127 H (34-104) Units/L Albumin 4.2 (3.5-5.7) g/dL Urine 08/01/18 Range/Units 19:31 Urine Color Yellow (Yellow) Urine Clarity Clear (Clear) Urine pH 6.0 (5.0-8.0) pH Units Ur Specific [place] 1.023 (1.010-1.025) Urine Protein Trace (Neg-Trace) mg/dL Urine Glucose (UA) Normal (Normal) mg/dL - Impressions ITS Impressions Chest X-Ray 08/01/18 13:39 IMPRESSION: No acute findings. No change. D/ / 08/01/2018 14:05:56 Abbe Zhao MD / [facility] Interpreting Provider: Abbe Zhao MD Abdomen/Pelvis CT 08/01/18 13:40 IMPRESSION: Study is motion compromised. Dependent opacities at the lung bases demonstrate interval improvement from the comparison likely atelectasis. Pneumonia not excluded. Interval placement of gastrostomy tube in the left lower quadrant. Tube projects in the stomach in expected position. Expected postsurgical changes noted in the abdominal wall. No definite acute abnormality noted. Cholelithiasis suspected. No acute intra-abdominal or intrapelvic abnormality noted. D/ / 08/01/2018 15:12:15 Cole Rodriguez MD / [facility] Interpreting Provider: Cole Rodriguez MD Head CT 08/01/18 13:40 IMPRESSION: No acute intracranial abnormality. D/ / Paolo Sommers MD / Paolo Sommers MD Interpreting Provider: Paolo Sommers MD - Time Spent With Patient Total time spent is greater than 50% in coordination of care (as documented) at patient's floor/unit and/or counseling patient: - Attending Attestation I saw and evaluated the patient. I reviewed the residents note, performed my own physical examination and agree with findings and plan as documented in the residents note. Patient seen and examined on 08/02/18. [facility] She had previously been a resident there, but had been signed out recently by her . Patient had declined at home and was brought back. She is currently sedated from her ER stay, but does wake to my voice. She does not answer questions. Patient found to have a low potassium. This was replenished. Checking magnesium in the morning along with repeat labs. PT and OT consult in the morning. Social work to assist with placement. Continue to monitor. Family history of medical problems unattainable.
[2018-08-01] MEDS ORDERED: Potassium Chloride Elixir 20 MEQ/15 ML UDC GTUBE ONE (21:52)
[2018-08-01] MEDS ORDERED: Sennosides 8.6 MG TABLET PO PRN (21:53)
[2018-08-01] MEDS ORDERED: Ipratropium/Albuterol Neb 3 ML IH PRN (21:53)
[2018-08-02] MEDS ORDERED: Potassium Chloride Elixir 20 MEQ/15 ML UDC PO ONE (00:23)
[2018-08-02] MEDS: *HR* Heparin 5,000 UNIT/ML VIAL SQ SCH ×2 (05:15→16:51)
[2018-08-02] MEDS: *HR* OxyCODONE Immed Rel 5 MG TABLET PO SCH ×4 (05:15→17:30)
--- NOTE | 2018-08-02 09:43 | Electrocardiograph Report ---
[place] [id number] Test Date: 2018-08-01 Pat Name: Candi Barraza Department: [id number] Room: 3B13 Gender: F Nurse Wound Care: : 1945 Requested By: Shaquille Chacon Order Number: [id number] Reading MD: Marques Devries Measurements Intervals [place] Rate: 80 P: 0 [place]: 49 QRS: 81 QRSD: 90 T: 70 QT: 413 QTc: 477 Interpretive Statements Sinus rhythm Artifact in lead(s) I II aVR aVL aVF V1 V2 V3 V4 V5 V6 Electronically Signed On 08-02-2018 9:41:38 EDT by Marques Devries
--- NOTE | 2018-08-02 09:47 | Internal Med Progress Note ---
Hospitalist Progress Note - Encounter Date of Encounter: 08/02/18 Time of Encounter: 09:43 - Subjective Interval History: Pt seen and examined in the room. She seems alert and oriented. and very anxious about the PEG tube, wants it to be removed. - Exam Vitals: Temp Pulse Resp BP Pulse Ox 97.7 F 70 16 153/72 98 08/02/18 06:31 08/02/18 06:31 08/02/18 06:31 08/02/18 06:31 08/02/18 06:31 Exam: General: Patient was asleep, aroused by touch but had fallen back asleep. Head: normocephalic, atraumatic Eyes: SWATI, no icterus, no discharge Neck: Trachea midline, no lymphadenopathy Cardio: RRR, no mumurs, rubs, or gallops Respiratory: CTAB, no wheezing, rhonchi, rales Chest: Normal chest wall rise, atraumatic Abd: normal bowel sounds, no gaurding or rigidity, site of G-tube no erythema, warmth, discharge Extremties: no pedal edema, pulses equal bilaterally, warm Skin: warm, dry, intact - Assessment and Plan (1) Altered mental status Current Visit: Yes Status: Suspected Assessment and Plan: Per ED record and the history and physical, patient was brought in because of mental status change. After careful interview with patient and family, brought the patient back to [facility] because she wanted her PEG tube removed, she has been eating and drinking by mouth without difficulty or aspiration, she felt that the PEG tube is really bothering. However, does not know what to do and he brought the patient back to [facility], where she was just been discharged days ago. Patient does not seem confused or agitated to me, although she does have some trouble express herself, this could be the residual secondary to recent CVA. (2) Hypokalemia Current Visit: Yes Status: Acute Assessment and Plan: Replace stated, repeat BMP in a.m. (3) History of CVA (cerebrovascular accident) Current Visit: Yes Status: Acute Assessment and Plan: Continue home medications including aspirin. (4) Mixed hyperlipidemia Current Visit: No Status: Chronic Assessment and Plan: Continue home medication. (5) S/P percutaneous endoscopic gastrostomy (PEG) tube placement Current Visit: No Status: Chronic Assessment and Plan: Speech therapy consulted, if passed the swallow evaluation, GI will remove PEG tube. (6) DVT prophylaxis Current Visit: Yes Status: Acute Assessment and Plan: Heparin subcutaneous. - Time Spent with Patient Total time spent is greater than 50% in coordination of care (as documented) at patient's floor/unit and/or counseling patient: Greater than 35 minutes Plan of Care Discussed with: patient Internal Medicine: Result - Labs CBC & Chem 7: 08/01/18 17:42 08/01/18 17:42 Labs: Short CBC 08/01/18 Range/Units 17:42 WBC 5.7 (4.3-11.1) K/mcL Hgb 10.1 L (11.5-15.4) g/dL Hct 32.8 L (35.3-44.9) % Plt Count 450 H (140-400) K/mcL Neutrophils # 3.7 (1.6-8.9) K/mcL BMP 08/01/18 17:42 Sodium 142 Potassium 2.8 L Chloride 108 H Carbon Dioxide 18 L BUN 12 Creatinine 0.54 L Glucose 132 H Calcium 9.6 Cardiac Enzymes 08/01/18 Range/Units 17:42 Troponin I < 0.03 (< 0.04) ng/mL Liver Function 08/01/18 Range/Units 17:42 Total Bilirubin 0.3 (0.3-1.0) mg/dL Direct Bilirubin 0.1 (0.0-0.2) mg/dL AST 27 (13-39) Units/L ALT 26 (7-52) Units/L Alkaline Phosphatase 127 H (34-104) Units/L Albumin 4.2 (3.5-5.7) g/dL Urine 08/01/18 Range/Units 19:31 Urine Color Yellow (Yellow) Urine Clarity Clear (Clear) Urine pH 6.0 (5.0-8.0) pH Units Ur Specific [place] 1.023 (1.010-1.025) Urine Protein Trace (Neg-Trace) mg/dL Urine Glucose (UA) Normal (Normal) mg/dL - Impressions Impressions Chest X-Ray 08/01/18 13:39 IMPRESSION: No acute findings. No change. D/ / 08/01/2018 14:05:56 Abbe Zhao MD / kati Interpreting Provider: Abbe Zhao MD Abdomen/Pelvis CT 08/01/18 13:40 IMPRESSION: Study is motion compromised. Dependent opacities at the lung bases demonstrate interval improvement from the comparison likely atelectasis. Pneumonia not excluded. Interval placement of gastrostomy tube in the left lower quadrant. Tube projects in the stomach in expected position. Expected postsurgical changes noted in the abdominal wall. No definite acute abnormality noted. Cholelithiasis suspected. No acute intra-abdominal or intrapelvic abnormality noted. D/ / 08/01/2018 15:12:15 Cole Rodriguez MD / [facility] Interpreting Provider: Cole Rodriguez MD Head CT 08/01/18 13:40 IMPRESSION: No acute intracranial abnormality. D/ / Paolo Sommers MD / Paolo Sommers MD Interpreting Provider: Paolo Sommers MD Consult Discharge Plan - Plan Referrals: NONE,PCP [Primary Care Provider] - (1) Altered mental status Qualifiers: Altered mental status type: unspecified Qualified Code(s): R41.82 - Altered mental status, unspecified
[2018-08-02] MEDS ORDERED: hydrOXYzine pamoate 25 MG CAPSULE PO PRN (10:26)
[2018-08-02] MEDS ORDERED: Ondansetron ODT 4 MG TAB.RAPDIS PO PRN (10:26)
--- NOTE | 2018-08-02 11:20 | Gastroenterology Consult Note ---
<Timmy Clements - Last Filed: 08/02/18 11:18> Date of Encounter: 08/02/18 Time of Encounter: 09:50 - Assessment and plan (1) S/P percutaneous endoscopic gastrostomy (PEG) tube placement Current Visit: No Status: Chronic Assessment and plan: Speech Therapy consulted for swallow evaluation. If patient passes swallow evaluation, Dr. Rowley will remove PEG tube. - Time Spent With Patient Total time spent is greater than 50% in coordination of care (as documented) at patient's floor/unit and/or counseling patient: GI History of Present Illness - Data of Consult Patient: new to practice Consult date: 08/02/18 Requesting Physician: Sudheer Weber MD - Consult Narrative Reason for consult: PEG tube removal History of present illness: Ms. 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 CT A/P shows gastrostomy tube in the left lower quadrant, tip projects in the stomach in expected position, expected postsurgical changes noted in the abdominal wall, no definite acute and normality noted, cholelithiasis is suspected, no acute intra-abdominal or intrapelvic abnormality noted. We were consulted to removed her PEG tube. Patient and son state the PEG tube was placed on 05/26/2018 but has not been used for the past 3 weeks. Son states she has been eating and drinking without difficulty. Patient does not appear confused, but has difficulty expressing herself. Procedures: No record NSAIDs: ASA Anticoagulation: None Past Med Surg Social Fam HX - Past Medical History Medical history: COPD, CVA, hyperlipidemia, hypertension Additional medical history: TIA, neck injury, Anxiety, Anemia, Peptic Ulcer, Left index finger digit ovulsion, carotid stenosis. bilateral weakness and memory loss due to CVA Psychiatric history: no psych history - Past Surgical History Surgical History: appendectomy, cancer surgery, carotid endarterectomy, colectomy, hysterectomy, other Additional surgical history: back surgery. Cervical cancer-lymph nodes removed. Left foot surgery. neck surgery. PEG tube - Social History Smoking Status: Current every day smoker Smokeless Tobacco Status: No Alcohol use: none Drug use: none - Gastrointestinal Gastrointestinal: Present: as per HPI - Constitutional Constitutional: as per HPI - EENT Eyes: as per HPI Ears: Present: as per HPI Nose, mouth and throat: Present: as per HPI - Cardiovascular Cardiovascular ROS: Present: as per HPI - Respiratory Respiratory IM: Present: as per HPI - Genitourinary Genitourinary: Absent: change in color, Urinary frequency - Neurological ROS Neurological GI: Present: as per HPI - Hematologic/Lymphatic Hematologic/Lymphatic pediatric: Present: as per HPI - Musculoskeletal Musculoskeletal ROS GI: Present: as per HPI - Integumentary Integumentary GI: Present: as per HPI - Psychiatric ROS Psychiatric GI: Present: as per HPI - Endocrine Endocrine IM: Present: as per HPI - Constitutional Vitals: Temp Pulse Resp BP Pulse Ox 97.7 F 70 16 153/72 98 08/02/18 06:31 08/02/18 06:31 08/02/18 06:31 08/02/18 06:31 08/02/18 06:31 General appearance: Present: cooperative, no acute distress, answers questions appropriately Exam: No agitation noted - Head Head exam: Present: atraumatic, normocephalic - Eye Eye exam: Present: normal appearance, sclera anicteric - ENT ENT exam: Present: mucous membranes moist - Neck Neck exam general surgery: Present: normal inspection, trachea midline - Respiratory Respiratory exam: Present: decreased breath sounds, CTAB - Cardiovascular Cardiovascular exam: Present: RRR, +S1, +S2 - GI/Abdominal GI/Abdominal exam: Present: soft, no peritoneal signs. Absent: distended, firm, guarding, tenderness Additional comments: PEG tube in place, no drainage noted. - Rectal Rectal exam: Present: deferred - Extremities Exam Extremities exam: Present: warm - Neurological Exam Additional comments: speech garbled due to hx CVA - Psychiatric Psychiatric exam: Present: normal affect, normal mood - Skin Skin exam: Present: dry, intact, normal color, warm Results - Labs CBC & Chem 7: 08/01/18 17:42 08/01/18 17:42 - Impressions Impressions Chest X-Ray 08/01/18 13:39 IMPRESSION: No acute findings. No change. D/ / 08/01/2018 14:05:56 Abbe Zhao MD / [facility]ati Interpreting Provider: Abbe Zhao MD Abdomen/Pelvis CT 08/01/18 13:40 IMPRESSION: Study is motion compromised. Dependent opacities at the lung bases demonstrate interval improvement from the comparison likely atelectasis. Pneumonia not excluded. Interval placement of gastrostomy tube in the left lower quadrant. Tube projects in the stomach in expected position. Expected postsurgical changes noted in the abdominal wall. No definite acute abnormality noted. Cholelithiasis suspected. No acute intra-abdominal or intrapelvic abnormality noted. D/ / 08/01/2018 15:12:15 Cole Rodriguez MD / [facility]i Interpreting Provider: Cole Rodriguez MD Head CT 08/01/18 13:40 IMPRESSION: No acute intracranial abnormality. D/ / Paolo Sommers MD / Paolo Sommers MD Interpreting Provider: Paolo Sommers MD Consult Discharge Plan - Plan Referrals: Buster Mcqueen [Partnered Physician] - NONE,PCP [Primary Care Provider] - <Agustin Rowley - Last Filed: 08/02/18 17:35> Date of Encounter: 08/02/18 Time of Encounter: 14:00 - Time Spent With Patient Total time spent is greater than 50% in coordination of care (as documented) at patient's floor/unit and/or counseling patient: GI History of Present Illness - Data of Consult Requesting Physician: Sudheer Weber MD - Consult Narrative History of present illness: Ms. Barraza is a 72 year old female - Constitutional Vitals: Temp Pulse Resp BP Pulse Ox 97.9 F 76 18 171/80 99 08/02/18 15:25 08/02/18 15:25 08/02/18 15:25 08/02/18 16:16 08/02/18 15:25 Results - Labs CBC & Chem 7: 08/01/18 17:42 08/02/18 05:30 Labs: Last Result 08/02/18 05:30 Calcium 9.5 - Impressions Impressions Abdomen/Pelvis CT 08/01/18 13:40 IMPRESSION: Study is motion compromised. Dependent opacities at the lung bases demonstrate interval improvement from the comparison likely atelectasis. Pneumonia not excluded. Interval placement of gastrostomy tube in the left lower quadrant. Tube projects in the stomach in expected position. Expected postsurgical changes noted in the abdominal wall. No definite acute abnormality noted. Cholelithiasis suspected. No acute intra-abdominal or intrapelvic abnormality noted. D/ / 08/01/2018 15:12:15 Cole Rodriguez MD / cari Interpreting Provider: Cole Rodriguez MD - Attending Attestation I have personally performed a face to face evaluation on this patient. I have reviewed and agree with the care plan. History and Exam by me shows: Patient seen at the bedside. Examination abdomen is benign old G-tube is in place. A: Patient with a G-tube that is not being used and need removal . Intervention: With Gentle pressure the old G-tube was removed. Keep the site clean
[2018-08-02] MEDS: amLODIPine 5 MG TABLET PO SCH (12:03)
[2018-08-02] MEDS: Pregabalin 50 MG CAPSULE PO SCH (16:36)
[2018-08-02 16:55] LABS: BUN/Creatinine Ratio 18 (6-26); Blood Urea Nitrogen 9 mg/dL (8-23); Calcium 9.5 mg/dL (8.6-10.3); Carbon Dioxide 24 mEq/L (23-29); Chloride 109 mEq/L (98-107); Glucose 91 mg/dL (70-105); Magnesium 2.1 mg/dL (1.6-2.6); Osmolality,Calculated 292 (280-300); Phosphorous 2.7 mg/dL (2.7-4.5); Potassium 3.9 mEq/L (3.5-5.1); Sodium 142 mEq/L (136-145); eGFR For Non-African Americans > 60 (> 60)
[2018-08-02] MEDS: *HR* LORazepam 1 MG TABLET PO PRN (17:30)
[2018-08-02] MEDS ORDERED: Pregabalin 50 MG CAPSULE PO SCH (21:00)
[2018-08-02] MEDS ORDERED: Melatonin 3 MG TABLET PO SCH (21:00)
[2018-08-03] MEDS: *HR* OxyCODONE Immed Rel 5 MG TABLET PO SCH ×5 (00:55→14:44)
[2018-08-03] MEDS: *HR* LORazepam 1 MG TABLET PO PRN (01:13)
[2018-08-03] MEDS: *HR* Heparin 5,000 UNIT/ML VIAL SQ SCH (05:36)
[2018-08-03] MEDS: amLODIPine 5 MG TABLET PO SCH (07:57)
[2018-08-03] MEDS: Pregabalin 50 MG CAPSULE PO SCH (07:57)
[2018-08-03] MEDS ORDERED: Aspirin Enteric Coated 81 MG Tablet PO SCH (09:00)
[2018-08-03] MEDS ORDERED: amLODIPine 5 MG TABLET PO SCH (09:00)
[2018-08-03 11:20] VITALS: BP 111/69
--- NOTE | 2018-08-03 12:14 | Discharge Summary ---
- NOTES TO OUTPATIENT PROVIDER Notes to Outpatient Provider: He was recently signed a alf AGAINST MEDICAL ADVICE by her due to insurance stopped payment -he brought her back to the [facility] after experiencing confusion and wanting PEG tube removed. Patient has not been taking medications at home. He was evaluated by speech therapy as well as PT and OT in GI. PEG tube was removed patient will be discharged home with H/H nursing PT/ OT and nursing aides. Date of Encounter: 08/03/18 Time of Encounter: 12:07 - Discharge Diagnosis (1) Mixed hyperlipidemia Priority: Secondary Status: Chronic (2) Hypokalemia Priority: Secondary Status: Acute (3) Altered mental status Priority: Primary Status: Suspected Qualifiers: Altered mental status type: unspecified Qualified Code(s): R41.82 - Altered mental status, unspecified (4) DVT prophylaxis Priority: Secondary Status: Acute (5) History of CVA (cerebrovascular accident) Priority: Secondary Status: Acute (6) S/P percutaneous endoscopic gastrostomy (PEG) tube placement Priority: Secondary Status: Chronic Hospital course: Ms. Barraza is a 72 year old female history of CVA with residual right-sided wea kness and aphasia, G-tube, hypertension, hyperlipidemia, COPD, had been a resident [facility] until July 27.reported that earlier today was at social work in the ER received a call from [facility] the patient showed up in the parking lot the squad was called. Her had signed her out AMA on July 27 due to insurance not paying for stay. It was reported that she has not been compliant with her home medications for anxiety over the last 5 days after leaving [facility]. Patient was agitated in the ED and is assumed to have altered mental status although the family has differing reports on whether this is altered mental status or the patient's normal. She was given Ativan Haldol and Geodon. Lab work with hypokalemia which was replaced and improved CXR with nothing acute , CT/Head brain showed no acute intracranial abnormality CT abdomen and pelvis showed: Dependent opacities at the lung bases demonstrate interval improvement from the comparison likely atelectasis. Interval placement of gastrostomy tube in the left lower quadrant, tip projects in the stomach in expected position, expected postsurgical changes noted in the abdominal wall, no definite acute and normality noted. Cholelithiasis is suspected, no acute intra-abdominal or intrapelvic abnormality noted. Evaluated by speech therapy recommending regular diet and thin liquids, PT/OT recommending home health - GI did see patient and removed PEG tube- she is hemodynamically stable at this time she is ambulating without difficulty appears to be at her neurological baseline. Advised patient and caregiver /son-he was at bedside to follow-up with primary care provider and to continue medications as prescribed. Verbalized understanding and she is ready for discharge. - Time Spent with Patient Total time spent providing and/or coordinating discharge services: - Discharge Medications Prescriptions: Continued Citalopram [CeleXA] 20 mg PO DAILY Aspirin [Lo-Dose Aspirin EC] 81 mg PO DAILY Acetaminophen [Pain Reliever] 500 mg PO Q4H amLODIPine [Norvasc] 5 mg PO DAILY Atorvastatin Calcium [Lipitor] 20 mg PO HS Buspirone HCl [Buspar] 7.5 mg PO BID Ergocalciferol (VITAMIN D2) [Vitamin D2] 50,000 unit PO TOVAR Ferrous Sulfate [Iron] 325 mg PO TID hydrOXYzine pamoate [HydrOXYzine Pamoate] 25 mg PO Q8H PRN PRN Reason: Anxiety Ipratropium/Albuterol Neb [Duoneb] 3 ml IH Q4HR PRN PRN Reason: Shortness Of Breath Lisinopril 2.5 mg PO DAILY Melatonin 3 mg PO HS Ondansetron HCl [Zofran] 4 mg PO Q6H PRN PRN Reason: Nausea And Vomiting OxyCODONE Immed Rel [Roxicodone 10 MG] 10 mg PO Q4H Pantoprazole Sodium [Protonix] 40 mg PO DAILY Pregabalin [Lyrica] 100 mg PO BIDWM Pregabalin [Lyrica] 200 mg PO HS Sennosides [Senna] 8.6 mg PO DAILY PRN PRN Reason: Constipation Sertraline [Zoloft] 25 mg PO DAILY Home Medications: Aspirin [Lo-Dose Aspirin EC] 81 mg PO DAILY 11/03/16 [History] Citalopram [CeleXA] 20 mg PO DAILY 11/03/16 [History] Acetaminophen [Pain Reliever] 500 mg PO Q4H 08/01/18 [History] Atorvastatin Calcium [Lipitor] 20 mg PO HS 08/01/18 [History] Buspirone HCl [Buspar] 7.5 mg PO BID 08/01/18 [History] Ergocalciferol (VITAMIN D2) [Vitamin D2] 50,000 unit PO TOVAR 08/01/18 [History] Ferrous Sulfate [Iron] 325 mg PO TID 08/01/18 [History] Ipratropium/Albuterol Neb [Duoneb] 3 ml IH Q4HR PRN 08/01/18 [History] Lisinopril 2.5 mg PO DAILY 08/01/18 [History] Melatonin 3 mg PO HS 08/01/18 [History] Ondansetron HCl [Zofran] 4 mg PO Q6H PRN 08/01/18 [History] OxyCODONE Immed Rel [Roxicodone 10 MG] 10 mg PO Q4H 08/01/18 [History] Pantoprazole Sodium [Protonix] 40 mg PO DAILY 08/01/18 [History] Pregabalin [Lyrica] 100 mg PO BIDWM 08/01/18 [History] Pregabalin [Lyrica] 200 mg PO HS 08/01/18 [History] Sennosides [Senna] 8.6 mg PO DAILY PRN 08/01/18 [History] Sertraline [Zoloft] 25 mg PO DAILY 08/01/18 [History] amLODIPine [Norvasc] 5 mg PO DAILY 08/01/18 [History] hydrOXYzine pamoate [HydrOXYzine Pamoate] 25 mg PO Q8H PRN 08/01/18 [History] Allergies/Adverse Reactions: Allergy/AdvReac Type Severity Reaction Status Date / Time ibuprofen [From Motrin] Allergy Hives Verified 10/30/16 16:04 naproxen [From Naprosyn] Allergy Hives Verified 10/30/16 16:04 Amoxicillin AdvReac Vomiting Verified 10/30/16 16:04 Date of admission: 08/01/18 21:40 Primary care physician: PCP NONE Consults: 08/01/18 21:00 Consult to Physical Therapy [CONS] Stat Comment: Evaluate, develop and implement POC Reason for Consult: Evaluate patient for re-placement at [place] (patient's signed her out AMA on 07/27, would like her to go back Does patient have active BEDREST order?: No Is patient medically & hemodynamically stable?: Yes 08/02/18 01:00 Consult to Wound Care Nurse [CONS] Routine Reason for SW Consult: Patient was recently placed at [facility] and her signed her out AMA due to financial concerns, patient wants to return to [facility] 08/02/18 08:32 Consult to Gastroenterology [CONS] Routine Consulting Provider: Jaime Joyner Reason for Consult: removal of PEG tube Call Completed: Yes 08/02/18 09:01 Consult to Speech Therapy [CONS] Routine Comment: Evaluate, develop and implement POC Reason for Consult: cva, had order for ST at home. Call Completed: Yes Discharging clinician: Mela Cano Anticipated date of discharge: 08/03/18 - Constitutional Vitals: Temp Pulse Resp BP Pulse Ox 97.9 F 71 17 111/69 94 08/03/18 11:19 08/03/18 11:19 08/03/18 11:19 08/03/18 11:19 08/03/18 11:19 Exam: General: Patient is appropriate and following commands Head: normocephalic, atraumatic Eyes: SWATI, no icterus, no discharge Neck: Trachea midline, no lymphadenopathy Cardio: RRR, no mumurs, rubs, or gallops Respiratory: CTAB, no wheezing, rhonchi, rales Chest: Normal chest wall rise, atraumatic Abd: normal bowel sounds, no gaurding or rigidity, site of G-tube no erythema, dressing intact No discharge Extremties: no pedal edema, pulses equal bilaterally, warm Skin: warm, dry, intact - Patient Status Disposition: Home Health Service Condition: Undetermined Functional capacity at discharge: independent ambulation Overall status at discharge: patient is back to baseline - Discharge Instructions Follow Up With: Buster Mcqueen [Partnered Physician] - NONE,PCP [Primary Care Provider] - - Diet and Activity Activity: as per physical therapy Diet: regular diet
--- NOTE | 2018-08-03 12:31 | Physician Discharge Referral ---
Home Health/Hosp Referral Info Transfer to: Home Health Attending Provider: Mela Cano Provider in Charge Post Discharge: PCP - Diagnosis (1) Mixed hyperlipidemia Priority: Secondary Status: Chronic (2) Hypokalemia Priority: Secondary Status: Acute (3) Altered mental status Priority: Primary Status: Suspected (4) History of CVA (cerebrovascular accident) Priority: Secondary Status: Acute (5) S/P percutaneous endoscopic gastrostomy (PEG) tube placement Priority: Secondary Status: Chronic - Respiratory Orders Oxygen / L per min Smoking Cessation: Smoking cessation has been advised. For more information, call the [place] Tobacco Quit Line at 8-032-JJZO-NOW. - Diet/Nutrition Diet/Nutrition Orders: Regular - Activity Activity Orders: Up ad julio - Services Needed Following services are medically necessary services: Nursing, Home Health Aide, Physical Therapy, Occupational Therapy - Transfer Medications Home Medications: Aspirin [Lo-Dose Aspirin EC] 81 mg PO DAILY 11/03/16 [History] Citalopram [CeleXA] 20 mg PO DAILY 11/03/16 [History] Acetaminophen [Pain Reliever] 500 mg PO Q4H 08/01/18 [History] Atorvastatin Calcium [Lipitor] 20 mg PO HS 08/01/18 [History] Buspirone HCl [Buspar] 7.5 mg PO BID 08/01/18 [History] Ergocalciferol (VITAMIN D2) [Vitamin D2] 50,000 unit PO TOVAR 08/01/18 [History] Ferrous Sulfate [Iron] 325 mg PO TID 08/01/18 [History] Ipratropium/Albuterol Neb [Duoneb] 3 ml IH Q4HR PRN 08/01/18 [History] Lisinopril 2.5 mg PO DAILY 08/01/18 [History] Melatonin 3 mg PO HS 08/01/18 [History] Ondansetron HCl [Zofran] 4 mg PO Q6H PRN 08/01/18 [History] OxyCODONE Immed Rel [Roxicodone 10 MG] 10 mg PO Q4H 08/01/18 [History] Pantoprazole Sodium [Protonix] 40 mg PO DAILY 08/01/18 [History] Pregabalin [Lyrica] 100 mg PO BIDWM 08/01/18 [History] Pregabalin [Lyrica] 200 mg PO HS 08/01/18 [History] Sennosides [Senna] 8.6 mg PO DAILY PRN 08/01/18 [History] Sertraline [Zoloft] 25 mg PO DAILY 08/01/18 [History] amLODIPine [Norvasc] 5 mg PO DAILY 08/01/18 [History] hydrOXYzine pamoate [HydrOXYzine Pamoate] 25 mg PO Q8H PRN 08/01/18 [History] Allergies/Adverse Reactions: Allergy/AdvReac Type Severity Reaction Status Date / Time ibuprofen [From Motrin] Allergy Hives Verified 10/30/16 16:04 naproxen [From Naprosyn] Allergy Hives Verified 10/30/16 16:04 Amoxicillin AdvReac Vomiting Verified 10/30/16 16:04 Certification: Further, I certify that my clinical findings support that this patient is homebound (i.e. absences from home require considerable and taxing effort and are for medical reasons or [employer] services or infrequently or short duration when for other reasons) because: Homebound Reason: Leaving home requires considerable and taxing effort due to condition Attestation: My signature below is to certify that this patient is under my care and that I, or nurse practitioner, or a physician's assistant professor of education working with me, has a [id number] encounter with this patient.
== END 2018-08-03 14:52 | disposition home health service (06) ==
LOC: 3BNU 13:23 → EMEROOARM 13:23 → 3BNU 22:24
PROVIDERS: ADMIT Family Medicine; ATTEND Family Medicine

== ENCOUNTER 2020-10-28 14:34 | Inpatient (IN) ==
[2020-10-28] MEDS ORDERED: 0.9 % Sodium Chloride 1,000 ML IVC ONE ×2 (14:45→14:47)
[2020-10-28] MEDS ORDERED: 0.9 % Sodium Chloride 1,000 ML ONE (14:46)
[2020-10-28] MEDS ORDERED: Ondansetron 4 MG/2 ML VIAL IVP ONE (14:46)
[2020-10-28 15:35] LABS: VBG HCO3 18 mEq/L (21-27); VBG PCO2 40 mmHg (41-51); VBG PH 7.26 pH Units (7.32-7.42); VBG PO2 172 mmHg (25-50)
[2020-10-28 15:36] LABS: Bilirubin,Urine Negative (Negative); Blood,Urine Negative (Negative); Clarity,Urine Clear (Clear); Color,Urine Light-Yellow (Yellow); Glucose,Urine (UA) Normal (Normal); Ketones,Urine Negative (Negative); Leukocyte Esterase,Urine Negative (Negative); Nitrite,Urine Negative (Negative); PH,Urine 5.5 pH Units (5.0-8.0); Protein,Urine Negative (Neg-Trace); Specific Gravity,Urine 1.016 (1.010-1.025); Urobilinogen,Urine Normal (Normal)
[2020-10-28 15:49] LABS: Basophils % 0.4 %; Eosinophils # 0.3 K/mcL (0.0-0.6); Eosinophils % 2.5 %; Hematocrit 34.1 % (35.3-44.9); Hemoglobin 10.3 g/dL (11.5-15.4); Immature Granulocytes % 0.7 % (0-4); Lymphocytes # 2.1 K/mcL (0.6-4.6); Lymphocytes % 20.3 %; Mean Corpuscular HGB Conc 30.2 g/dL (31.6-35.5); Mean Corpuscular Hemoglobin 33.2 pg (28.0-33.3); Monocytes # 0.3 K/mcL (0.0-1.3); Monocytes % 3.2 %; Neutrophils # 7.5 K/mcL (1.6-8.9); Platelet Count 365 K/mcL (140-400); Red Cell Distribution Width 14.3 % (11.5-14.5); Segmented Neutrophils % 72.9 %; White Blood Count 10.3 K/mcL (4.3-11.1)
[2020-10-28 16:20] LABS: Adenovirus Not Detected (Not Detect); Coronavirus 229E Not Detected (Not Detect); Coronavirus HKU1 Not Detected (Not Detect); Coronavirus NL63 Not Detected (Not Detect); Coronavirus OC43 Not Detected (Not Detect); Human Metapneumovirus Not Detected (Not Detect); Human Rhinovirus/Enterovirus Not Detected (Not Detect); Influenza A Subtype 2009 H1 Not Detected (Not Detect); Influenza B Not Detected (Not Detect); Parainfluenza Virus 1 Not Detected (Not Detect); SARS-CoV-2 Not Detected (Not Detect)
[2020-10-28 16:21] LABS: Bordetella Pertussis Not Detected (Not Detect); Chlamydophila pneumoniae Not Detected (Not Detect); Mycoplasma pneumoniae Not Detected (Not Detect); Parainfluenza Virus 2 Not Detected (Not Detect); Parainfluenza Virus 3 Not Detected (Not Detect); Parainfluenza Virus 4 Not Detected (Not Detect); Respiratory Syncytial Virus Not Detected (Not Detect)
[2020-10-28] MEDS ORDERED: 0.9 % Sodium Chloride 500 ML IV ONE ×2 (17:16→18:14)
[2020-10-28 18:00] LABS: Thyroid Stimulating Hormone 1.547 mcIU/mL (0.340-5.600); Troponin I < 0.03 ng/mL (< 0.04)
[2020-10-28 18:29] LABS: Alanine Aminotransferase 19 Units/L (7-52); Albumin 3.1 g/dL (3.5-5.7); Albumin/Globulin Ratio 1.3 (1.1-2.2); Alkaline Phosphatase 97 Units/L (34-104); Aspartate Amino Transferase 38 Units/L (13-39); BUN/Creatinine Ratio 26 (6-26); Bilirubin,Total 0.4 mg/dL (0.3-1.0); Blood Urea Nitrogen 35 mg/dL (8-23); Calcium 8.3 mg/dL (8.6-10.3); Carbon Dioxide 13 mEq/L (23-29); Chloride 112 mEq/L (98-107); Creatine Kinase 225 Units/L (30-223); Globulin 2.4 g/dL (2.4-3.5); Glucose 127 mg/dL (70-105); Osmolality,Calculated 298 (280-300); Potassium 5.1 mEq/L (3.5-5.1); Sodium 139 mEq/L (136-145); Total Protein 5.5 g/dL (6.4-8.9); eGFR For African Americans 46 (> 60); eGFR For Non-African Americans 38 (> 60)
[2020-10-28] MEDS ORDERED: MetroNIDAZOLE 500 MG/100 ML 500 MG/100 ML BAG IVPB ONE (19:10)
[2020-10-28] MEDS ORDERED: Ondansetron 4 MG/2 ML VIAL IVP PRN (20:15)
[2020-10-28] MEDS ORDERED: Naloxone 0.4 MG/ML INJ IVP PRN (20:15)
[2020-10-28] MEDS ORDERED: Acetaminophen 325 MG TABLET PO PRN (20:15)
[2020-10-28] MEDS: 0.9 % Sodium Chloride 1,000 ML IVC SCH (21:06)
[2020-10-28] MEDS ORDERED: Milk and Molasses Enema 200 ML RC ONE (21:35)
[2020-10-28] MEDS ORDERED: Ipratropium/Albuterol Neb 3 ML IH PRN (21:35)
[2020-10-28] MEDS ORDERED: polyethylene glycoL 3350 17 GM POWD.PACK PO PRN (21:39)
[2020-10-28] MEDS: *HR* Heparin 5,000 UNIT/ML VIAL SQ SCH (22:22)
[2020-10-29 03:21] LABS: Hematocrit 33.1 % (35.3-44.9); Hemoglobin 10.1 g/dL (11.5-15.4); Mean Corpuscular HGB Conc 30.5 g/dL (31.6-35.5); Mean Corpuscular Hemoglobin 32.4 pg (28.0-33.3); Mean Corpuscular Volume 106.1 fL (83.0-100.0); Monocytes # 0.2 K/mcL (0.0-1.3); Platelet Count 334 K/mcL (140-400); Red Blood Count 3.12 M/mcL (3.82-4.97); Red Cell Distribution Width 14.2 % (11.5-14.5)
[2020-10-29 03:28] LABS: Prothrombin Time 11.8 Seconds (9.4-12.1)
[2020-10-29 03:34] LABS: Calcium 8.1 mg/dL (8.6-10.3); Magnesium 2.2 mg/dL (1.6-2.6); Potassium 4.9 mEq/L (3.5-5.1)
[2020-10-29 03:36] LABS: % Iron Saturation 5 % (15-50); Iron 18 mcg/dL (50-170); Transferrin 249 mg/dL (203-362)
[2020-10-29 03:43] LABS: Lymphocytes # 0.4 K/mcL (0.6-4.6); Neutrophils # 4.3 K/mcL (1.6-8.9); Platelet Estimate Normal (Normal); Toxic Granulation Present (Not Present); Toxic Vacuolation Present (Not Present)
[2020-10-29 03:54] LABS: Ferritin 60 ng/mL (10-120)
[2020-10-29] MEDS: MetroNIDAZOLE 500 MG/100 ML 500 MG/100 ML BAG IVPB SCH ×3 (03:57→19:51)
[2020-10-29 03:59] LABS: Folate 10.1 ng/mL (3.0-16.0)
[2020-10-29 04:01] LABS: Vitamin B12 < 50 pg/mL (250-1100)
[2020-10-29] MEDS: *HR* Heparin 5,000 UNIT/ML VIAL SQ SCH ×2 (06:04→17:51)
[2020-10-29] MEDS: 0.9 % Sodium Chloride 1,000 ML IVC SCH (07:30)
[2020-10-29] MEDS ORDERED: Cyanocobalamin (B-12) 1,000 MCG/ML VIAL IM ONE (08:47)
[2020-10-29] MEDS ORDERED: Folic Acid 1 MG in 0.9 % Sodium Chloride 50 ML IVPB ONE (09:17)
[2020-10-29] MEDS: Thiamine (B-1) 100 MG in 0.9 % Sodium Chloride 50 ML IVPB SCH (11:58)
[2020-10-29] MEDS ORDERED: Isovue-370 500 ML BOTTLE IVP ONE (12:55)
[2020-10-29] MEDS ORDERED: tiZANidine 4 MG TABLET PO PRN (14:20)
[2020-10-29] MEDS ORDERED: *HR* OxyCODONE/APAP 10/325 TABLET PO PRN (14:20)
[2020-10-29] MEDS ORDERED: *HR* FentaNYL (PF) 100 MCG/2 ML VIAL IVP ONE (17:28)
[2020-10-30 05:08] LABS: Hematocrit 25.5 % (35.3-44.9); Mean Corpuscular HGB Conc 32.2 g/dL (31.6-35.5); Mean Corpuscular Hemoglobin 32.8 pg (28.0-33.3); Mean Platelet Volume 9.1 fL (9.4-12.4); Platelet Count 281 K/mcL (140-400); Red Cell Distribution Width 14.1 % (11.5-14.5)
[2020-10-30 05:09] LABS: Hemoglobin 8.2 g/dL (11.5-15.4); White Blood Count 7.9 K/mcL (4.3-11.1)
[2020-10-30 05:28] LABS: BUN/Creatinine Ratio 22 (6-26); Blood Urea Nitrogen 20 mg/dL (8-23); Calcium 7.9 mg/dL (8.6-10.3); Carbon Dioxide 16 mEq/L (23-29); Chloride 112 mEq/L (98-107); Glucose 73 mg/dL (70-105); Osmolality,Calculated 283 (280-300); Potassium 3.8 mEq/L (3.5-5.1); Sodium 136 mEq/L (136-145); eGFR For African Americans > 60 (> 60); eGFR For Non-African Americans > 60 (> 60)
[2020-10-30] MEDS: *HR* Heparin 5,000 UNIT/ML VIAL SQ SCH ×2 (06:02→17:23)
[2020-10-30] MEDS: MetroNIDAZOLE 500 MG/100 ML 500 MG/100 ML BAG IVPB SCH ×3 (06:02→20:32)
[2020-10-30] MEDS ORDERED: Calcium Gluconate 1gm/50mL 1 GM/50 ML BAG IVPB ONE (07:57)
[2020-10-30] MEDS: Cyanocobalamin (B-12) 1,000 MCG/ML VIAL IM SCH (09:31)
[2020-10-30] MEDS: Thiamine (B-1) 100 MG in 0.9 % Sodium Chloride 50 ML IVPB SCH (11:07)
[2020-10-31] MEDS: MetroNIDAZOLE 500 MG/100 ML 500 MG/100 ML BAG IVPB SCH ×2 (05:08→12:35)
[2020-10-31] MEDS: *HR* Heparin 5,000 UNIT/ML VIAL SQ SCH ×2 (05:08→17:44)
[2020-10-31 06:52] LABS: Hematocrit 22.8 % (35.3-44.9); Hemoglobin 7.3 g/dL (11.5-15.4); Mean Corpuscular Hemoglobin 32.2 pg (28.0-33.3); Mean Corpuscular Volume 100.4 fL (83.0-100.0); Mean Platelet Volume 9.3 fL (9.4-12.4); Platelet Count 270 K/mcL (140-400); Red Blood Count 2.27 M/mcL (3.82-4.97); Red Cell Distribution Width 14.2 % (11.5-14.5); White Blood Count 6.3 K/mcL (4.3-11.1)
[2020-10-31 06:58] LABS: BUN/Creatinine Ratio 18 (6-26); Blood Urea Nitrogen 12 mg/dL (8-23); Calcium 7.9 mg/dL (8.6-10.3); Carbon Dioxide 20 mEq/L (23-29); Chloride 107 mEq/L (98-107); Glucose 76 mg/dL (70-105); Osmolality,Calculated 277 (280-300); Potassium 3.7 mEq/L (3.5-5.1); Sodium 134 mEq/L (136-145); eGFR For African Americans > 60 (> 60); eGFR For Non-African Americans > 60 (> 60)
[2020-10-31] MEDS: Cyanocobalamin (B-12) 1,000 MCG/ML VIAL IM SCH (08:08)
[2020-10-31] MEDS: Thiamine (B-1) 100 MG in 0.9 % Sodium Chloride 50 ML IVPB SCH (09:21)
[2020-10-31] MEDS ORDERED: Iron Sucrose Complex 400 MG in 0.9 % Sodium Chloride 250 ML IVPB ONE (11:09)
[2020-10-31 13:07] LABS: Hematocrit 23.4 % (35.3-44.9); Hemoglobin 7.5 g/dL (11.5-15.4); Mean Corpuscular HGB Conc 32.1 g/dL (31.6-35.5); Mean Corpuscular Hemoglobin 32.5 pg (28.0-33.3); Mean Corpuscular Volume 101.3 fL (83.0-100.0); Mean Platelet Volume 9.2 fL (9.4-12.4); Platelet Count 279 K/mcL (140-400); Red Blood Count 2.31 M/mcL (3.82-4.97); Red Cell Distribution Width 14.1 % (11.5-14.5); White Blood Count 5.9 K/mcL (4.3-11.1)
[2020-10-31] MEDS: Acetaminophen IV 1,000 MG/100 ML BAG IVPB SCH ×2 (13:51→17:41)
[2020-10-31] MEDS: metroNIDAZOLE 500 MG TABLET PO SCH ×2 (13:56→20:35)
[2020-10-31] MEDS ORDERED: GADOBUTROL 30 MMOL/30 ML VIAL IVP ONE (14:49)
[2020-11-01] MEDS: Acetaminophen IV 1,000 MG/100 ML BAG IVPB SCH ×3 (00:03→12:10)
[2020-11-01] MEDS: *HR* Heparin 5,000 UNIT/ML VIAL SQ SCH (05:54)
[2020-11-01 06:20] LABS: Basophils % 0.4 %; Eosinophils # 0.1 K/mcL (0.0-0.6); Eosinophils % 1.1 %; Hemoglobin 8.7 g/dL (11.5-15.4); Immature Granulocytes % 0.7 % (0-4); Lymphocytes # 0.6 K/mcL (0.6-4.6); Lymphocytes % 7.6 %; Mean Corpuscular HGB Conc 33.5 g/dL (31.6-35.5); Mean Corpuscular Hemoglobin 33.2 pg (28.0-33.3); Mean Corpuscular Volume 99.2 fL (83.0-100.0); Mean Platelet Volume 9.3 fL (9.4-12.4); Monocytes # 0.5 K/mcL (0.0-1.3); Monocytes % 6.4 %; Neutrophils # 6.3 K/mcL (1.6-8.9); Platelet Count 309 K/mcL (140-400); Red Blood Count 2.62 M/mcL (3.82-4.97); Segmented Neutrophils % 83.8 %; White Blood Count 7.5 K/mcL (4.3-11.1)
[2020-11-01 06:38] LABS: Anisocytosis 1+ (Not Present); Platelet Estimate Normal (Normal); Polychromasia 1+ (Not Present); Reactive Lymphocytes Present (Not Present)
[2020-11-01 06:42] LABS: Alanine Aminotransferase 11 Units/L (7-52); Albumin 2.9 g/dL (3.5-5.7); Albumin/Globulin Ratio 1.3 (1.1-2.2); Alkaline Phosphatase 70 Units/L (34-104); Aspartate Amino Transferase 32 Units/L (13-39); BUN/Creatinine Ratio 13 (6-26); Bilirubin,Total 0.3 mg/dL (0.3-1.0); Blood Urea Nitrogen 9 mg/dL (8-23); Calcium 7.8 mg/dL (8.6-10.3); Carbon Dioxide 23 mEq/L (23-29); Chloride 108 mEq/L (98-107); Globulin 2.2 g/dL (2.4-3.5); Glucose 104 mg/dL (70-105); Osmolality,Calculated 283 (280-300); Potassium 3.4 mEq/L (3.5-5.1); Sodium 137 mEq/L (136-145); Total Protein 5.1 g/dL (6.4-8.9); eGFR For African Americans > 60 (> 60); eGFR For Non-African Americans > 60 (> 60)
[2020-11-01] MEDS ORDERED: Potassium Chloride Elixir 20 MEQ/15 ML UDC PO ONE (07:53)
[2020-11-01 08:32] LABS: Magnesium 1.5 mg/dL (1.6-2.6)
[2020-11-01] MEDS: Cyanocobalamin (B-12) 1,000 MCG/ML VIAL IM SCH (09:48)
[2020-11-01] MEDS: metroNIDAZOLE 500 MG TABLET PO SCH (09:50)
[2020-11-01 09:57] VITALS: BP 160/90; PULSE 96; TEMP 97.8; O2SAT 97
[2020-11-01] MEDS ORDERED: Iron Sucrose Complex 200 MG in 0.9 % Sodium Chloride 100 ML IVPB ONE (11:09)
== END 2020-11-01 13:26 | disposition home or self-care (01) | DRG 391 ==
LOC: EMEROOARM 14:34 → SUATTDRO 19:48 → ICNU 19:48 → 3ANU 10-29 18:27
PROVIDERS: ADMIT Internal Medicine; ATTEND Internal Medicine